=== PATIENT | male | born 1985 | race Caucasian/White ===

== ENCOUNTER 2016-12-04 16:34 | Emergency (ER) | payer OTHER ==
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
[2016-12-05 13:11] LABS: HEP B CORE AB TOTAL Negative (Negative); HEP B SURFACE AB QL Reactive; HEP C ANTIBODY 0.1 s/co ratio (0.0-0.9)
== END 2016-12-04 18:35 | disposition home or self-care (01) ==
LOC: ER 16:34
DX: S61.432A Puncture wound without foreign body of left hand, initial encounter (principal); W46.0XXA Contact with hypodermic needle, initial encounter; Y93.89 Activity, other specified; Y92.89 Other specified places as the place of occurrence of the external cause; Y99.8 Other external cause status
CPT/HCPCS: 99284; 96372; 36415; 86704; 86706; 86803; 86703; 87340; J0696; Z7502